=== PATIENT | male | born 1945 | race Asian ===

== ENCOUNTER 2020-10-06 15:02 | Inpatient (IN) | payer OTHER ==
[~2020-10-06] VITALS: Ht 162.6 cm; Wt 64.3 kg
[2020-10-06] MEDS ORDERED: CLOBETASOL PROP15 GM TOP (23:05)
--- NOTE | 2020-10-07 02:22 | NUR ---
PATIENT WAS ADMITTED INTO THE UNIT AT 1999. HE IS ALERT AND OORIENTED WITH SOME CONFUSSION. HE AMBULATES ABLE TO VERBLAIZE NEEDS. HE IS ADMITED TO 519B. MEDS AND ADMIT ORDER IN PLACE. ERICK CONSENTED TO BE TREATED AND HE REFUSED TO SIGN THE PAPER. ADMIT ORDER WAS VERIFIED BY AND 96HOUR HOLD PAPER WAS FAXED. PT DENIES ANY DISCOMFORT, PAINS/SI/ AVH/SI. NO CONCERN NOTED AT TIS TIME. BED IS LOW, ALARMED, AND LOKCED.
[2020-10-07 05:54] LABS: CHOLESTEROL 222 mg/dL (<200); HDL CHOLESTEROL 57 mg/dL (>40); LDL CHOLESTEROL 145 mg/dL (<100); TC:HDL 3.9 Ratio (Not establshd); TRIGLYCERIDE 100 mg/dL (<150); VLDL 20 mg/dL (<40)
[2020-10-07 06:19] LABS: SERUM ASSESSMENT Clear
[2020-10-07 08:57] VITALS: BP 172/82
[2020-10-07 09:59] VITALS: BP 172/82
--- NOTE | 2020-10-07 10:47 | NUR ---
1047 RESUMMED CARE FROM OVERNIGHT SHIFT THIS AM, PATIENT SITTING IN DAY ROOM QUIET. PATIENT ALERT ORIENTED TIMES 4 PATIENT DENIES SI/HI/AH/VH AT PRESENT. PATIENT ATE BREAKFAST TOOK MEDICATION WITHOUT INCIDENCE, PATIENTS ABDOMEN SOFT BOWEL SOUNDS PATIENTS LUNGS CLEAR. PATIENT CALM COOPERATIVE PATIENT HAS NOT DISPLAYED ANY BEHAVIORS. WILL CONTINUE TO MONITOR PATIENT FOR SAFETY AND BEHAVIORS.
--- NOTE | 2020-10-07 13:34 | NUR ---
Admit to [facility]. Dx dementia with behaviors, unspecified psychosis, DM. Pt noted with good dietary intake since admit. BMI within healthy range at 23. On SSI. vit D. A1c pending. Will place at low nutrition risk at this time.
[2020-10-07 15:41] LABS: FOLIC ACID 12.1 ng/mL (8.6-58.9)
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
[2020-10-07 19:52] VITALS: BP 130/67
[2020-10-07 22:03] VITALS: BP 130/67
--- NOTE | 2020-10-07 22:15 | NUR ---
9765 RESUMMED CARE FROM DAY SHIFT THIS PM, PATIENT IN DAYROOM SITTING QUIET. PATIENT DENIES SI/HI/AH/VH AT PRESENT PATIENT HAD VISIT FROM AND DAUGHTER. PATIENT WAS VERY HAPPY TO SEE HIS FAMILY PATIENTS ABDOMNEN SOFT BOWEL SOUNDS PRESENT. PATIENTS LUNGS CLEAR PATIENT ALERT ORIENTED TIMES 4 PATIENT HAS NOT DISPLAYED ANY BEHAVIORS. WILL CONTINUE TO MONITOR PATIENT FOR SAFETY AND BEHAVIORS.
[2020-10-08 02:07] LABS: GLYCOHEMOGLOBIN (HGB A1C) 9.2 % (4.8-5.6)
[2020-10-08 09:05] VITALS: BP 135/75
--- NOTE | 2020-10-08 12:41 | NUR ---
PATIENT PLEASANT AND CALM - ASSUMED CARE TAKEN ON AT 0700 - PATIENT STATED SLEPT WELL - NOT SURE WHY HE IS HERE. NO AGITATION NOTED. ORIENTED 1-3 MEDICATION COMPLIANT. BLOOD SUGARS HAVE REQUIRED INSULIN BOTH FOR BREAKIFAST AND LUNCH. PATIENT HAS GOOD APPETITE - COMPLETING 100 PERCENT OF BOTH MEALS. AMBULATORY - REQUESTED SHOWER THIS MORNING. FAMILY VISITED AND WENT WELL. RESPONSIVE TO QUESTIONS ADDRESSED TO HIM. HAD CT SCAN AT 10 AM. AMBULATES INDEPENDENTLY WITH STEADY GAIT.
--- NOTE | 2020-10-08 18:10 | NUR ---
Emailed Sidney Herndon with [facility] and requested a medicaid screening for with the Pt.
[2020-10-08 19:29] VITALS: BP 126/58
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
[2020-10-09 01:13] VITALS: BP 100/50
[2020-10-09 01:32] VITALS: BP 120/64
--- NOTE | 2020-10-09 02:07 | NUR ---
PATIENT CARE RESUMED AT 1900. PATIENT TOOK MEDS WHOLE WITHOUT DIFFICULTY. HS BLOOD SUGAR WAS 312, NO HS INSULIN ON BOARD, PATIENT CONCERNED ABOUT HIS INSULIN LEVEL AND NOT HAVING HIS USUAL NIGHT TIME INJECTION. NOTIFIED BRICK STACKER CARLOS CINTRON, RECIEVED ORDER FOR 9 UNITS ONE TIME ACCORDING TO HIS SLIDING SCALE. APPROXIMATELY 0048 PATIENT WALKED OUT TO NURSING STATION STATING "MY SUGAR IS LOW", PATIENT SAT DOWN ON THE FLOOR, DIAPHRETIC. GLUCOSE OF 38 - GIVEN 2 ORANGE JUICE, 1 GLUCOSE TAB, 1 TUBE OF GLUCOSE GEL. RECHECKED AT 0055 WITH 49 GLUCOSE, 0102 WITH 77 GLUCOSE, 0113 WITH 97, 0127 WITH 87, AND MOST RECENTLY WITH A GLUCOSE OF 89. PATIENT HELPED TO LIE BACK IN A NEVILLE CHAIR IN FRONT OF NURSING STATION FOR MONITORING. CARLOS CINTRON NOTIFED DURING THIS, NO NEW ORDERS RECIEVED. PATIENT ALERT AND REQUESTING WATER AND NOW REQUESTING TO GO BACK TO BED. GIVEN WATER. ASSISTED TO BED X 1 ASSIST. WILL CONTINUE TO MONITOR, PATIENT ON FALL PRECAUTIONS.
[2020-10-09 06:09] LABS: DIRECT BILIRUBIN < 0.1 mg/dL (<0.1-0.2); SGOT 19 U/L (15-37); SGPT 19 U/L (30-65); TOTAL BILIRUBIN 0.2 mg/dL (0.2-1.0); TOTAL PROTEIN 6.1 g/dL (6.4-8.2)
[2020-10-09 08:27] VITALS: BP 160/80
--- NOTE | 2020-10-09 10:38 | NUR ---
PT ALERT AND ORIENTED TIMES FOUR. VSS. PT DENIES SI/HI/AH/VH/PAIN/SOA PT TOLERATES MEDS AND MEALS. PT HAS LITTLE INTERACTION WITH STAFF AND PEERS. PT DID ATTEND GROUPS THIS SHIFT. WILL CONTINUE TO MONITOR.
[2020-10-09 19:34] VITALS: BP 112/64
[2020-10-09 19:35] VITALS: BP 112/64
--- NOTE | 2020-10-09 23:18 | NUR ---
Assumed care on 10/09/20 @ 1900, in bed, awakened to voice, cooperated with VS and assessment, HRRR, Lungs CTA ABD Nx 4Q. Denies pain, HI/SI. Got out of bed and came to the day room for snack time. FSBS 182, no HS insulin ordered. Able to verbalize needs and express himself. A&Ox 3-4 pleasant affect noted. Took meds whole with water. Retired @ HS, will continue to monitor for safety and comfort as per unit protocol.
[2020-10-10 08:30] VITALS: BP 95/51
--- NOTE | 2020-10-10 13:05 | NUR ---
PATIENT CARE ASSUMED AT 0700 - PLEASANT AND SELF CARE. UP FOR BREAKFAST IN DINING FRANK. COMPLIANT WITH MEDICATIONS. BLOOD SUGAR 176 AT BREAKFAST AND 239 AT LUNCH. INSULIN ADMINISTERED - TOLERATED WELL. STATES " NOTHING WRONG WITH ME - DOCTOR STATES GOING HOME TOMORROW." SMILING
[2020-10-10 19:28] VITALS: BP 149/68
[2020-10-10 19:35] VITALS: BP 149/68
--- NOTE | 2020-10-11 01:28 | NUR ---
Assumed care on 10/10/20 @ 1900, Seated in day room at a table watching TV. HRRR, Lungs CTA, ABD N x 4Q, Denies pain, denies SI/HI, denies hallucinations. Compliant with medications, Retired to bed @ HS. Will continue to monitor for safety and comfort as per unit protocol.
[2020-10-11 08:31] LABS: BASOPHILS 0.3 % (0.0-2.0); EOSINOPHILS 5.1 % (0.0-3.0); HEMATOCRIT 29.6 % (42.0-52.0); LYMPHOCYTES 9.9 % (24.0-44.0); MCH 31.6 pg (26.0-34.0); MCHC 33.6 g/dL (28.0-37.0); MCV 93.9 fL (80.0-100.0); MONOCYTES 8.6 % (1.0-8.0); PLATELET COUNT 156 thou/uL (150-400); POLYS 76.1 % (36.0-66.0); RBC 3.16 mil/uL (4.50-6.00); RDW 13.1 % (10.5-14.5); WBC 6.6 thou/uL (4.0-11.0)
[2020-10-11 08:55] LABS: CALCIUM 8.4 mg/dL (8.5-10.1); CREATININE 2.3 mg/dL (0.7-1.3); MAGNESIUM 2.2 mg/dL (1.8-2.4); POTASSIUM 5.4 mmol/L (3.5-5.1)
[2020-10-11 08:58] VITALS: BP 155/73
--- NOTE | 2020-10-11 18:06 | NUR ---
Assumed pt care at 0700. pt was in his room alert. alert and oriented x4. Assessments completed, vss. active bowel sounds, s1 s2 regular. Took meds whole, no difficulty noted. Ambulates with a steady gait. Calm and cooperative with care. NO SIGN OF ACUTE DISTRESS NOTED UPON ASSESMENTS. PT WAS EMOTIONAL UPON ASSESSMENTS THIS MORNING WHEN ASKED OF WHY HE WAS ADMITTED. INSULINS ADMINISTERED ORDERED. At this time pt is in the day room resting. Will continue to monitor.
--- NOTE | 2020-10-11 18:14 | NUR ---
JUDI had a a family meeting with Pt's Mirna and daughter Mirella. The recommedation was given for assisted living memory care for the Pt. THe family was in agree with the recommendation. However the Pt is not in agreement. JUDI educated on guardianship and the guardianship process. The family stated they had not contacted a unarmed security officer concerning the matter. JUDI informed that without a DPOA or guardian Pt could not be placed, if not in agreement. JUDI and Dr. Veloz encouraged the family to start the guardianship process. JUDI also talked to the family about private duty nursing for the Pt if Pt was to return home. Mirna stated the Pt's children can assit in caretaking . Pt's has an adult son who currently lives in the home and another adult son who will be moving back in soon. JUDI encouraged family to talk about a plan for the Pt to return home. JUDI reiterated the recommendation for AL memory care/24hr supervision. JUDI will continue to follow
[2020-10-11 19:54] VITALS: BP 129/70
[2020-10-11 20:30] VITALS: BP 129/70
--- NOTE | 2020-10-12 02:09 | NUR ---
PATIENT HAS BEEN IN HER BED SINCE ASSUMED CARE OF PATIENT AT 1930. PATIENT IS A/0X1. SHE IS PLEASANT AND COOPERATIVE. SHE DOES HAVE SOME REDDNESS TO BUTTOCKS WITH BRUISE BREAKDOWN AND BARRIER CREAM PLACED ON AREA DURING INCONTINENCE CARES AND PRN. PATIENT REPOSITIONS HERSELF ONTO BACK WHEN TRYING TO PLACE HER ON HER SIDE. SHE IS ABLE TO REPOSITION SELF TO SOME DEGREE. PATIENT DOES TALK OUT LOUD AND CALLS OUT NAMES OF PEOPLE SHE KNOWS AND IS LOOKING FOR. SHE IS EASILY REDIRECTABLE. SHE DENIES PAIN AND NO INDICATION OF IT IN HER BEHAVIORS OR BODY LANGUAGE. NO SIGNS OF SI/HI. SHOWS SOME INDICATION OF AVH SHE TALKS TO SELF AND OTHERS NOT IN ROOM AND ANSWERS THEM OUT LOUD. PATIENT DID EAT 50% OF PUDDING WITH [employer]. SHE IS ON NECTAR THICK LIQUIDS. BED IN LOW POSITION AND BED ALARM IS ON. ROUTINE AND PRN ROUNDS TO ASSESS SAFETY AND STATUS OF PATIENT.
--- NOTE | 2020-10-12 02:23 | NUR ---
PATIENT SAT UP IN DINING ROOM THIS EVENING FOR AWHILE. HE DID HAVE AN HS SNACK. PATIENT HAS BEEN CALM AND COOPERATIVE. HE DID QUESTION WHAT HIS MEDS WERE AT HS AND DOES NOT THINK HE NEEDS THE OXYCARBAZINE. HE DID TAKE IT HOWEVER. PATIENT DENIES PAIN, SI/HI/AVH. HE AMBULATES WITH A STEADY GAIT. HE IS INDEPENDENT WITH CARES. NO BEHAVIORS NOTED. ROUTINE ROUNDS TO ASSESS STATUS AND SAFETY OF PATIENT.
[2020-10-12 05:07] LABS: SYPHILIS AB Reactive (Non Reactive)
[2020-10-12 06:07] LABS: CALCIUM 8.2 mg/dL (8.5-10.1); CREATININE 2.2 mg/dL (0.7-1.3); POTASSIUM 4.9 mmol/L (3.5-5.1)
[2020-10-12 08:48] LABS: URINE BILIRUBIN NEGATIVE (Negative); URINE BLOOD TRACE (Negative); URINE CLARITY CLEAR; URINE COLOR YELLOW; URINE GLUCOSE-RANDOM* NEGATIVE (Negative); URINE KETONES NEGATIVE (Negative); URINE LEUKOCYTES NEGATIVE (Negative); URINE NITRITE NEGATIVE (Negative); URINE PROTEIN (DIPSTICK) 1+ (Negative); URINE SPECIFIC GRAVITY 1.015 (1.005-1.035); URINE UROBILINOGEN 0.2 E.U./dl (0.2-1.0)
[2020-10-12 09:04] LABS: CASTS None Seen /LPF (None Seen); SQUAMOUS 0-3 Few /LPF (0-3); URINE RBC 1-2 Rare /HPF (NONE SEEN)
[2020-10-12 09:05] LABS: BACTERIA 1-9 Few /HPF (None Seen); CRYSTALS None Seen /LPF (None Seen); URINE WBC None Seen /HPF (NONE SEEN)
[2020-10-12 09:23] VITALS: BP 153/74
[2020-10-12 15:46] LABS: ABSOLUTE NEUTROPHILS 5.5 thou/uL (1.4-8.2); BASOPHILS 0.2 % (0.0-2.0); EOSINOPHILS 3.1 % (0.0-3.0); HEMATOCRIT 26.5 % (42.0-52.0); HEMOGLOBIN 8.9 gm/dL (14.0-18.0); MCH 31.2 pg (26.0-34.0); MCHC 33.5 g/dL (28.0-37.0); MCV 93.3 fL (80.0-100.0); MONOCYTES 10.9 % (1.0-8.0); PLATELET COUNT 163 thou/uL (150-400); POLYS 66.8 % (36.0-66.0); RBC 2.84 mil/uL (4.50-6.00); WBC 8.3 thou/uL (4.0-11.0)
[2020-10-12 15:53] LABS: ANION GAP 11 mmol/L (7-16); BUN 38 mg/dL (7-18); CALCIUM 7.9 mg/dL (8.5-10.1); CHLORIDE 102 mmol/L (98-107); CO2 21 mmol/L (21-32); CREATININE 2.4 mg/dL (0.7-1.3); GLUCOSE 56 mg/dL (74-106); POTASSIUM 4.2 mmol/L (3.5-5.1); SODIUM 134 mmol/L (136-145)
[2020-10-12 16:02] LABS: TROPONIN-I <0.06 ng/mL (<0.06)
--- NOTE | 2020-10-12 16:21 | NUR ---
Pt. had a drop in BS - FINANCIAL REPORTING MANAGER activated - See flowsheet
--- NOTE | 2020-10-12 17:06 | NUR ---
Assumed pt care at 0700. pt was in his room resting. pt was alert and oriented x4. active bowel sounds, S1 S2 regular. Assessments completed, vss. Took meds whole, no difficulty noted. Denies SI/HI, Denies pain at this time. Ambulates with a steady gait. Calm and cooperative with care. UA collected and sent to the lab. Pt makes need known to staff. 0734 blood sugar was 91. No insulin given, pt refused. DR ward was messaged at [employer]. NO RESPONSE. At 1134 pt blood sugar was 272. DR Ward was paged No response. Pt ate 100% of lunch, 1241 scheduled insulin was administered to pt. At 1454 Pt was sweaty and had unsteady gait. Blood sugar reassessed. Pt blood sugar assessed 41. 2 Bracken was given to pt. 1503 blood sugar was 36. glucose tablet administered and apple juice. VS 02 99, BP 128/54, P 78, T 95.4, R 16. DR Ellison notified, DR Ellison as bedside. 4196-6930 blood sugar 42. 1522 glucagon IM 1mg was administered. Rapid response at at approximately 1525. 1527 blood sugar 60. crackers, peanut butter and orange juice was fed to pt. 1538 blood sugar was 73. peanut butter apple juice given to pt. 1553 blood sugar 97. 1545 IV Dextrose 5% administered at 250ml per hour. AT [address] Ward was paged. DR ward gave orders to HOLD pt insulin and run 500ml of Dextrose. At this time no insulins given, 500ml of Dextrose infused. pt is currently sleeping in his room. pt daughters visited at bedside. Will continue to monitor pt.
[2020-10-12 20:12] VITALS: BP 141/63
--- NOTE | 2020-10-13 04:49 | NUR ---
10-12-20 CARE TRANSFERRED 1899. LATER OBSERVED PT SITTING IN DAY ROOM AND EATING DINNER, PT ATE 100% DINNER AND BLD GLUCOSE 146 DIRECTLY AFTER EATING. PT AAOX4, VSS, RR EVEN AND NONLABORED ON RA, PT DENIES PAIN AND SI/HI. PT REPORTED THAT AFTER 2ND COVID VACCINE SHOT HE STARTED HAVING SKIN ISSUES, THEN AN ANTIBODY CAUSED SKING TO WORSEN. PT HAD NO DIFFICULTIED TAKING MEDICATION WHOLE AND AT THIS TIME REPORTED HE WAS GOING HOME TOMORROW. PT HAS REMAINED PLEASANT, CALM AND COOPERATIVE. PT WILL CONTINUE TO BE MONITOR PER [facility] PROTOCOL.
--- NOTE | 2020-10-13 07:25 | EKG ---
[place] [address] [employer] [place] [address] ELECTROCARDIOGRAM REPORT Name: RUBEN TOURE Room #: [facility] ADM IN M.R.#: [id number] Admission: 10/06/20 Attend Phys: James Ellison DO Discharge: Date of : 43 Report #: [id number] [facility] Test Date: 2020-10-12 Test Time: 15:36:59 Pat Name: RUBEN TOURE Department: Room: [facility] Gender: M Cloth Weigher: FSCHWALBE : 1945 Requested By: James Ellison Order Number: [id number] MD: Chad Kraus Measurements Intervals [place] Rate: 68 P: 35 MO: 169 QRS: 24 QRSD: 119 T: 152 QT: 451 QTc: 480 Interpretive Statements Sinus rhythm LVH with IVCD and secondary repol abnrm Inferior infarct, old Anterior ST elevation, probably due to LVH No previous ECG available for comparison Electronically Signed On 10-13-2020 7:25:41 CDT by Chad Kraus [email or web address] <ELECTRONICALLY SIGNED> By: Chad Kraus MD, [facility] 10/13/20 0725 1536 153 Chad Kraus MD, [facility] /EPI
[2020-10-13 08:52] VITALS: BP 142/70
--- NOTE | 2020-10-13 11:54 | NUR ---
1154 RESUMED CARE FROM OVERNIGHT NURSE THIS AM. PT ALERT AND ORIENTED. PT SITTING IN DAY ROOM AWAITING LUNCH AT THIS TIME. PT ATE BREAKFAST AND TOOK MEDICATIONS WITHOUT INCIDENT. PT DENIES SI/HI/AH/VH AT PRESENT. PT ABDOMEN SOFT AND BOWEL SOUNDS PRESENT. PT CALM AND COOPERATIVE W NO BEHAVIORS DISPLAYED. BLOOD SUGARS TAKEN AC/HS. WILL CONTINUE TO MONITOR PT FOR BEHAVIORS AND SAFETY.
--- NOTE | 2020-10-13 12:21 | NUR ---
RT Progress Note- Donniebryn Maxwell" has been active in the therapeutic milieu and recreation therapy since his admission. Jonnathan will socialize with peers upon prompting, otherwise he does tend to keep to himself. He has remained calm, though very discharge focused. BRICK EXTRUDER OPERATOR will continue to encourage participation and milieu presence.
--- NOTE | 2020-10-13 14:15 | NUR ---
SW spoke with the Pt's daughter Wanda Buck, , concerning discharge. SW called to setup discharge of the Pt. Wanda stated she was under the impression that the Pt would stay in the hospital until Dr. Veloz return from vaction on the . SW explained this was not a plan and that during the meeting it was advised the family consult an commercial attorney about guardianship. Also that the family stated they would care for the Pt in the home due to Pt not being in agreement with a placement and not having a DPOA or guardian at this time. Wanda confirmed the family has not consulted an commercial attorney. SW reiterated the recommendation of AL memory care/24 hour supervision. Wanda stated that her mother and two of her brothers are in the home and will assit with care for the Pt. Wanda also expressed concerns that the Pt will come home and have behaviors. SW provide emotional support and education about dementia. SW informed that if Pt begins to have behaviors again to call 911 and have Pt brought to the emergency room for an evaluation. d/c set for 10/14/2020 @1530. [facility] Pt has a follow up appointment with Dr. Singh 10/23/2020 @10am. Pt PCP did not have any appointments until mid October.
[2020-10-13 19:00] VITALS: BP 138/63
[2020-10-13 19:26] VITALS: BP 138/63
--- NOTE | 2020-10-14 03:57 | NUR ---
Assumed care on 10/13/20 @ 1915, A&Ox4, Pleasant affect, cooperative with assessment and compliant with medications, taking meds whole with water. Ambulates with a steady gait, low fall risk. FSBS 184, 8 units of sliding scale insulin provided. Extra snack of peanut butter, crackers and apple juice provided. Retired to bed @ , will continue to monitor as per unit protocol for safety and comfort. Bed in low position.
[2020-10-14 08:44] VITALS: BP 137/66
--- NOTE | 2020-10-14 11:13 | NUR ---
Nutrition follow up: Pt remains on [facility], on carb controlled diet with 100% intakes at meals. A1c 9.2, BS range 67-307 last [address] DM meds in place. Continues low nutrition risk.
--- NOTE | 2020-10-14 11:15 | NUR ---
Alert and orientated X4. Calm, cooperative and compliant. Denies SI/HI. Breath sounds clear. Reg HR auscultated. Color pink with brisk capillary refill and palpable peripheral pulses. No edema noted. Independent with voiding. States he had BM this AM. Active bowel sounds over soft, rounded abdomen. Ambulates with regular, steady gait.
[2020-10-14] MEDS ORDERED: LORATIDINE 10 M10 M1 PO (12:47)
[2020-10-14] MEDS ORDERED: OXCARBAZEPINE300 MG PO (12:48)
[2020-10-14] MEDS ORDERED: LIPITOR 20 MG T20 M1 PO (12:48)
[2020-10-14] MEDS ORDERED: FLOMAX0.4 MG PO (12:48)
[2020-10-14] MEDS ORDERED: BAYER CHEWABLE81 MG PO (12:48)
[2020-10-14] MEDS ORDERED: AZELASTINE137 MCG/0. NASAL (12:49)
[2020-10-14] MEDS ORDERED: FLONASE 0.05%50 MCG NASAL (12:49)
[2020-10-14] MEDS ORDERED: HUMALOG100 UNIT/1 SUBQ (12:50)
[2020-10-14] MEDS ORDERED: VITAMIN D3125 MC1 PO (12:51)
[2020-10-14 16:20] VITALS: BP 137/66
== END 2020-10-14 16:50 | disposition home or self-care (01) | DRG 884 ==
LOC: SBH
PROVIDERS: Hospitalist; Nurse Practitioner; Nurse Practitioner Family; ADMIT Psychiatry & Neurology Psychiatry; ATTEND Psychiatry & Neurology Psychiatry
DX: F03.91 Unspecified dementia, unspecified severity, with behavioral disturbance (principal); N17.9 Acute kidney failure, unspecified; N18.9 Chronic kidney disease, unspecified; E11.65 Type 2 diabetes mellitus with hyperglycemia; H54.61 Unqualified visual loss, right eye, normal vision left eye; E11.22 Type 2 diabetes mellitus with diabetic chronic kidney disease; E11.42 Type 2 diabetes mellitus with diabetic polyneuropathy; E11.319 Type 2 diabetes mellitus with unspecified diabetic retinopathy without macular edema; I12.9 Hypertensive chronic kidney disease with stage 1 through stage 4 chronic kidney disease, or unspecified chronic kidney disease; E78.2 Mixed hyperlipidemia; Z96.1 Presence of intraocular lens; N40.0 Benign prostatic hyperplasia without lower urinary tract symptoms; E87.5 Hyperkalemia; Z87.01 Personal history of pneumonia (recurrent); Z90.49 Acquired absence of other specified parts of digestive tract; Z98.49 Cataract extraction status, unspecified eye; Z80.8 Family history of malignant neoplasm of other organs or systems; Z79.899 Other long term (current) drug therapy; Z79.82 Long term (current) use of aspirin
CPT/HCPCS: 10880